=== PATIENT | male | born 1940 | race Two or more races ===

== ENCOUNTER 2020-04-18 05:19 | Emergency (ER) | payer MEDICARE ==
[2020-04-18 05:42] LABS: Glucose,Whole Blood 93 mg/dL (75-99)
[2020-04-18 06:47] LABS: Basophils # (A) 0.1 k/uL (0-0.2); Basophils % (A) 1 %; Eosinophils # (A) 0.4 k/uL (0-0.7); Eosinophils % (A) 5 %; HCT 46.1 % (39.0-53.0); HGB 15.5 gm/dL (13.0-17.5); Lymphocytes # (A) 1.7 k/uL (1.0-4.8); Lymphocytes % (A) 19 %; MCH 30.6 pg (25.0-35.0); MCHC 33.6 g/dL (31.0-37.0); Monocytes # (A) 0.5 k/uL (0-1.0); Monocytes % (A) 6 %; Neutrophils # (A) 5.9 k/uL (1.3-7.7); Neutrophils % (A) 68 %; Platelet Count 236 k/uL (150-450); RBC 5.07 m/uL (4.30-5.90); WBC 8.7 k/uL (3.8-10.6)
--- NOTE | 2020-04-18 06:59 | ED ---
General Adult HPI - General Chief complaint: Weakness Stated complaint: Weakness Time Seen by Provider: 04/18/20 05:34 Source: patient, family Mode of arrival: ambulatory Limitations: no limitations - History of Present Illness Initial comments: This patient is 79-year-old man who presents to be evaluated for generalized weakness, fatigue, tremulousness. He states that the symptoms started to affect him this morning when he got up to use the bathroom. Patient was concerned as he had spent a good portion of the previous day standing and pink for that he suspects had leg pain, it. He was wearing a mask at the time but states it did not have a very good Seal and he did inhale some dust. The patient told his daughter about symptoms and they bring him here for evaluation. The patient states that the symptoms have subsided and now he is feeling pretty good. Patient denies fever or chills. No dyspnea. No cough. No chest pain or any pain whatsoever. Patient is denying weakness now read no paresthesias. -: hour(s) Location: left, right, lower extremity Consistency: now resolved Improves with: none Worsens with: none Associated Symptoms: denies other symptoms - Related Data Home Medications Medication Instructions Recorded Confirmed Aspirin 325 mg PO DAILY 02/06/15 02/06/15 Cholecalciferol [Vitamin D3] 2,000 unit PO DAILY 02/06/15 02/06/15 Flecainide Acetate 50 mg PO BID 02/06/15 02/06/15 Fluticasone Propionate 1 each NASAL DAILY 02/06/15 02/06/15 Loratadine [Claritin] 10 mg PO DAILY 02/06/15 02/06/15 Timolol [Betimol 0.5% Ophth Soln] 1 drop LEFT EYE DAILY 02/06/15 02/06/15 Allergies Allergy/AdvReac Type Severity Reaction Status Date / Time No Known Allergies Allergy Verified 04/18/20 05:25 Review of Systems ROS Statement: Those systems with pertinent positive or pertinent negative responses have been documented in the HPI. ROS Other: All systems not noted in ROS Statement are negative. Constitutional: Reports: weakness (Generalized weakness, now Resolved). Denies: fever, chills Respiratory: Denies: cough, dyspnea Cardiovascular: Denies: chest pain, palpitations, syncope Endocrine: Reports: fatigue (Now resolved) Gastrointestinal: Denies: abdominal pain, nausea, vomiting Musculoskeletal: Denies: back pain Skin: Denies: rash Neurological: Denies: headache, weakness, numbness Past Medical History Additional Past Medical History / Comment(s): pacemaker History of Any Multi-Drug Resistant Organisms: None Reported Past Surgical History: Appendectomy, Hernia Repair, Pacemaker Additional Past Surgical History / Comment(s): cataracts Past Psychological History: No Psychological Hx Reported Smoking Status: Never smoker Past Alcohol Use History: None Reported Past Drug Use History: None Reported General Exam Limitations: no limitations General appearance: alert, in no apparent distress Head exam: Present: atraumatic, normocephalic Eye exam: Present: normal appearance, PERRL, EOMI. Absent: scleral icterus, conjunctival injection ENT exam: Present: normal oropharynx Neck exam: Present: normal inspection, full ROM Respiratory exam: Present: normal lung sounds bilaterally. Absent: respiratory distress, wheezes, rales, rhonchi, stridor Cardiovascular Exam: Present: regular rate, normal rhythm, normal heart sounds. Absent: systolic murmur, diastolic murmur, rubs, gallop GI/Abdominal exam: Present: soft. Absent: distended, tenderness, guarding, lorie ound, rigid Extremities exam: Present: normal inspection, normal capillary refill. Absent: pedal edema, calf tenderness Back exam: Present: normal inspection. Absent: CVA tenderness (R), CVA tenderness (L) Neurological exam: Present: alert, oriented X3, CN II-XII intact. Absent: motor sensory deficit Skin exam: Present: warm, dry, intact, normal color. Absent: rash Course Vital Signs 04/18/20 04/18/20 05:20 07:04 Temperature 98.5 F 98.2 F Pulse Rate 66 54 L Respiratory 20 19 Rate Blood Pressure 154/69 123/67 O2 Sat by Pulse 96 98 Oximetry Medical Decision Making - Lab Data Result diagrams: 04/18/20 06:10 04/18/20 06:10 Lab Results 04/18/20 04/18/20 04/18/20 Range/Units 05:40 06:10 06:10 WBC 8.7 (3.8-10.6) k/uL RBC 5.07 (4.30-5.90) m/uL Hgb 15.5 (13.0-17.5) gm/dL Hct 46.1 (39.0-53.0) % MCV 91.0 (80.0-100.0) fL MCH 30.6 (25.0-35.0) pg MCHC 33.6 (31.0-37.0) g/dL RDW 13.0 (11.5-15.5) % Plt Count 236 (150-450) k/uL Neutrophils % 68 % Lymphocytes % 19 % Monocytes % 6 % Eosinophils % 5 % Basophils % 1 % Neutrophils # 5.9 (1.3-7.7) k/uL Lymphocytes # 1.7 (1.0-4.8) k/uL Monocytes # 0.5 (0-1.0) k/uL Eosinophils # 0.4 (0-0.7) k/uL Basophils # 0.1 (0-0.2) k/uL Sodium 141 (137-145) mmol/L Potassium 4.1 (3.5-5.1) mmol/L Chloride 107 (98-107) mmol/L Carbon Dioxide 27 (22-30) mmol/L Anion Gap 7 mmol/L BUN 18 (9-20) mg/dL Creatinine 0.90 (0.66-1.25) mg/dL Est GFR (CKD-EPI)AfAm >90 (>60 ml/min/1.73 sqM) Est GFR (CKD-EPI)NonAf 81 (>60 ml/min/1.73 sqM) Glucose 91 (74-99) mg/dL POC Glucose (mg/dL) 93 (75-99) mg/dL POC Glu Test And Research Reactor Operator ID Mary Beaver Calcium 9.7 (8.4-10.2) mg/dL Total Bilirubin 2.1 H (0.2-1.3) mg/dL AST 23 (17-59) U/L ALT 13 (4-49) U/L Alkaline Phosphatase 61 (38-126) U/L Total Protein 6.6 (6.3-8.2) g/dL Albumin 4.0 (3.5-5.0) g/dL Disposition Clinical Impression: Fatigue Disposition: HOME SELF-CARE Condition: Good Instructions (If sedation given, give patient instructions): Fatigue (ED) Is patient prescribed a controlled substance at d/c from ED?: No Referrals: Ananth Hansen MD [Primary Care Provider] - 1-2 days
[2020-04-18 07:03] LABS: ALT 13 U/L (4-49); AST 23 U/L (17-59); African American GFR (CKD) >90 (>60 ml/min/1.73 sqM); Alkaline Phosphatase 61 U/L (38-126); Anion Gap 7 mmol/L; Blood Urea Nitrogen 18 mg/dL (9-20); Calcium 9.7 mg/dL (8.4-10.2); Carbon Dioxide 27 mmol/L (22-30); Chloride 107 mmol/L (98-107); Glucose 91 mg/dL (74-99); Non-African American GFR(CKD) 81 (>60 ml/min/1.73 sqM); Potassium 4.1 mmol/L (3.5-5.1); Sodium 141 mmol/L (137-145); Total Bilirubin 2.1 mg/dL (0.2-1.3); Total Protein 6.6 g/dL (6.3-8.2)
[2020-04-18 07:07] VITALS: BP 123/67; PULSE 54; RESP 19; TEMP 98.2
== END 2020-04-18 07:19 | disposition home or self-care (01) ==
LOC: EC 05:19
DX: R53.83 Other fatigue (principal); Z79.82 Long term (current) use of aspirin; Z95.0 Presence of cardiac pacemaker
CPT/HCPCS: 36415; 80053; 83655; 85025; 99285

== ENCOUNTER 2020-04-25 01:29 | Emergency (ER) | payer MEDICARE ==
[2020-04-25] MEDS ORDERED: SODIUM CHLORIDE 0.9% 1,000 ML IV STA (01:48)
--- NOTE | 2020-04-25 01:49 | ED ---
Weakness HPI - General Chief complaint: Weakness Stated complaint: Abdominal pain Time Seen by Provider: 04/25/20 01:47 Source: patient Mode of arrival: ambulatory Limitations: no limitations - History of Present Illness Initial comments: This is a 79-year-old male DF for evaluation significant weakness woke up and is sweating fit, not feeling well with nausea. Patient has weakness, uneasy belly and anxiety, secondary patient is woke up this week MD Complaint: generalized weakness -: hour(s) Location: generalized Severity: moderate Severity scale (1-10): 6 Consistency: constant Improves with: none Worsens with: none Context: recent illness Associated Symptoms: denies other symptoms - Related Data Home Medications Medication Instructions Recorded Confirmed Aspirin 325 mg PO DAILY 02/06/15 02/06/15 Cholecalciferol [Vitamin D3] 2,000 unit PO DAILY 02/06/15 02/06/15 Flecainide Acetate 50 mg PO BID 02/06/15 02/06/15 Fluticasone Propionate 1 each NASAL DAILY 02/06/15 02/06/15 Loratadine [Claritin] 10 mg PO DAILY 02/06/15 02/06/15 Timolol [Betimol 0.5% Ophth Soln] 1 drop LEFT EYE DAILY 02/06/15 02/06/15 Allergies Allergy/AdvReac Type Severity Reaction Status Date / Time No Known Allergies Allergy Verified 04/25/20 01:39 Review of Systems ROS Statement: Those systems with pertinent positive or pertinent negative responses have been documented in the HPI. ROS Other: All systems not noted in ROS Statement are negative. Past Medical History Additional Past Medical History / Comment(s): pacemaker History of Any Multi-Drug Resistant Organisms: None Reported Past Surgical History: Appendectomy, Hernia Repair, Pacemaker Additional Past Surgical History / Comment(s): cataracts Past Psychological History: No Psychological Hx Reported Smoking Status: Never smoker Past Alcohol Use History: None Reported Past Drug Use History: None Reported General Exam Limitations: no limitations General appearance: alert, in no apparent distress Head exam: Present: atraumatic, normocephalic, normal inspection Eye exam: Present: normal appearance, PERRL, EOMI. Absent: scleral icterus, conjunctival injection, periorbital swelling ENT exam: Present: normal exam, mucous membranes moist Neck exam: Present: normal inspection. Absent: tenderness, meningismus, lymphadenopathy Respiratory exam: Present: normal lung sounds bilaterally. Absent: respiratory distress, wheezes, rales, rhonchi, stridor Cardiovascular Exam: Present: regular rate, normal rhythm, normal heart sounds. Absent: systolic murmur, diastolic murmur, rubs, gallop, clicks GI/Abdominal exam: Present: soft, normal bowel sounds. Absent: distended, tenderness, guarding, rebound, rigid Extremities exam: Present: normal inspection, full ROM, normal capillary refill. Absent: tenderness, pedal edema, joint swelling, calf tenderness Back exam: Present: normal inspection Neurological exam: Present: alert, oriented X3, CN II-XII intact Psychiatric exam: Present: normal affect, normal mood Skin exam: Present: warm, dry, intact, normal color. Absent: rash Course Vital Signs 04/25/20 04/25/20 04/25/20 01:34 02:16 02:48 Temperature 98.1 F Pulse Rate 56 L 56 L 57 L Respiratory 17 16 14 Rate Blood Pressure 170/62 150/76 139/70 O2 Sat by Pulse 99 97 98 Oximetry - Reevaluation(s) Reevaluation #1: 04/25/20 01:48 Medical record is reviewed 04/25/20 01:49 Recent ER visit is also reviewed Reevaluation #2: 04/25/20 03:34 Patient is feeling better,shaking sweating or pain. Reevaluation #3: 04/25/20 03:34 Patient family informed of results and patient can be discharged home EKG Findings - EKG Comments: EKG Findings:: EKG is sinus bradycardia 54, MT 190 QRS 92 QTC 400 Medical Decision Making - Medical Decision Making 39 male with anxiety-type reaction some stomach uneasiness. Patient is negative for acute disease here in the ER, symptoms are normal vital signs are normal patient can be discharged home - Lab Data Result diagrams: 04/25/20 02:02 04/25/20 02:02 Lab Results 04/25/20 04/25/20 04/25/20 Range/Units 01:54 02:02 02:02 WBC 9.5 (3.8-10.6) k/uL RBC 5.16 (4.30-5.90) m/uL Hgb 15.5 (13.0-17.5) gm/dL Hct 47.0 (39.0-53.0) % MCV 91.1 (80.0-100.0) fL MCH 30.1 (25.0-35.0) pg MCHC 33.0 (31.0-37.0) g/dL RDW 13.1 (11.5-15.5) % Plt Count 223 (150-450) k/uL Neutrophils % 67 % Lymphocytes % 19 % Monocytes % 6 % Eosinophils % 5 % Basophils % 1 % Neutrophils # 6.4 (1.3-7.7) k/uL Lymphocytes # 1.8 (1.0-4.8) k/uL Monocytes # 0.6 (0-1.0) k/uL Eosinophils # 0.5 (0-0.7) k/uL Basophils # 0.1 (0-0.2) k/uL PT 10.5 (9.0-12.0) sec INR 1.0 (<1.2) APTT 22.9 (22.0-30.0) sec Sodium (137-145) mmol/L Potassium (3.5-5.1) mmol/L Chloride (98-107) mmol/L Carbon Dioxide (22-30) mmol/L Anion Gap mmol/L BUN (9-20) mg/dL Creatinine (0.66-1.25) mg/dL Est GFR (CKD-EPI)AfAm (>60 ml/min/1.73 sqM) Est GFR (CKD-EPI)NonAf (>60 ml/min/1.73 sqM) Glucose (74-99) mg/dL POC Glucose (mg/dL) 91 (75-99) mg/dL POC Glu Embedded Systems Software Engineer ID Kai, Jami Plasma Lactic Acid Shoaib (0.7-2.0) mmol/L Calcium (8.4-10.2) mg/dL Phosphorus (2.5-4.5) mg/dL Magnesium (1.6-2.3) mg/dL Total Bilirubin (0.2-1.3) mg/dL AST (17-59) U/L ALT (4-49) U/L Alkaline Phosphatase (38-126) U/L Creatine Kinase (55-170) U/L Troponin I (0.000-0.034) ng/mL NT-Pro-B Natriuret Pep pg/mL Total Protein (6.3-8.2) g/dL Albumin (3.5-5.0) g/dL TSH (0.465-4.680) mIU/L Urine Color Urine Appearance (Clear) Urine pH (5.0-8.0) Ur Specific [place] (1.001-1.035) Urine Protein (Negative) Urine Glucose (UA) (Negative) Urine Ketones (Negative) Urine Blood (Negative) Urine Nitrite (Negative) Urine Bilirubin (Negative) Urine Urobilinogen (<2.0) mg/dL Ur Leukocyte Esterase (Negative) 04/25/20 04/25/20 04/25/20 Range/Units 02:02 02:02 02:02 WBC (3.8-10.6) k/uL RBC (4.30-5.90) m/uL Hgb (13.0-17.5) gm/dL Hct (39.0-53.0) % MCV (80.0-100.0) fL MCH (25.0-35.0) pg MCHC (31.0-37.0) g/dL RDW (11.5-15.5) % Plt Count (150-450) k/uL Neutrophils % % Lymphocytes % % Monocytes % % Eosinophils % % Basophils % % Neutrophils # (1.3-7.7) k/uL Lymphocytes # (1.0-4.8) k/uL Monocytes # (0-1.0) k/uL Eosinophils # (0-0.7) k/uL Basophils # (0-0.2) k/uL PT (9.0-12.0) sec INR (<1.2) APTT (22.0-30.0) sec Sodium 139 (137-145) mmol/L Potassium 4.2 (3.5-5.1) mmol/L Chloride 107 (98-107) mmol/L Carbon Dioxide 28 (22-30) mmol/L Anion Gap 4 mmol/L BUN 18 (9-20) mg/dL Creatinine 0.98 (0.66-1.25) mg/dL Est GFR (CKD-EPI)AfAm 85 (>60 ml/min/1.73 sqM) Est GFR (CKD-EPI)NonAf 74 (>60 ml/min/1.73 sqM) Glucose 101 H (74-99) mg/dL POC Glucose (mg/dL) (75-99) mg/dL POC Glu Embedded Systems Software Engineer ID Plasma Lactic Acid Shoaib 0.9 (0.7-2.0) mmol/L Calcium 9.6 (8.4-10.2) mg/dL Phosphorus 2.5 (2.5-4.5) mg/dL Magnesium 2.0 (1.6-2.3) mg/dL Total Bilirubin 1.3 (0.2-1.3) mg/dL AST 19 (17-59) U/L ALT 12 (4-49) U/L Alkaline Phosphatase 63 (38-126) U/L Creatine Kinase 52 L (55-170) U/L Troponin I <0.012 (0.000-0.034) ng/mL NT-Pro-B Natriuret Pep pg/mL Total Protein 6.3 (6.3-8.2) g/dL Albumin 3.9 (3.5-5.0) g/dL TSH 4.220 (0.465-4.680) mIU/L Urine Color Urine Appearance (Clear) Urine pH (5.0-8.0) Ur Specific [place] (1.001-1.035) Urine Protein (Negative) Urine Glucose (UA) (Negative) Urine Ketones (Negative) Urine Blood (Negative) Urine Nitrite (Negative) Urine Bilirubin (Negative) Urine Urobilinogen (<2.0) mg/dL Ur Leukocyte Esterase (Negative) 04/25/20 04/25/20 Range/Units 02:02 02:58 WBC (3.8-10.6) k/uL RBC (4.30-5.90) m/uL Hgb (13.0-17.5) gm/dL Hct (39.0-53.0) % MCV (80.0-100.0) fL MCH (25.0-35.0) pg MCHC (31.0-37.0) g/dL RDW (11.5-15.5) % Plt Count (150-450) k/uL Neutrophils % % Lymphocytes % % Monocytes % % Eosinophils % % Basophils % % Neutrophils # (1.3-7.7) k/uL Lymphocytes # (1.0-4.8) k/uL Monocytes # (0-1.0) k/uL Eosinophils # (0-0.7) k/uL Basophils # (0-0.2) k/uL PT (9.0-12.0) sec INR (<1.2) APTT (22.0-30.0) sec Sodium (137-145) mmol/L Potassium (3.5-5.1) mmol/L Chloride (98-107) mmol/L Carbon Dioxide (22-30) mmol/L Anion Gap mmol/L BUN (9-20) mg/dL Creatinine (0.66-1.25) mg/dL Est GFR (CKD-EPI)AfAm (>60 ml/min/1.73 sqM) Est GFR (CKD-EPI)NonAf (>60 ml/min/1.73 sqM) Glucose (74-99) mg/dL POC Glucose (mg/dL) (75-99) mg/dL POC Glu Embedded Systems Software Engineer ID Plasma Lactic Acid Shoaib (0.7-2.0) mmol/L Calcium (8.4-10.2) mg/dL Phosphorus (2.5-4.5) mg/dL Magnesium (1.6-2.3) mg/dL Total Bilirubin (0.2-1.3) mg/dL AST (17-59) U/L ALT (4-49) U/L Alkaline Phosphatase (38-126) U/L Creatine Kinase (55-170) U/L Troponin I (0.000-0.034) ng/mL NT-Pro-B Natriuret Pep 324 pg/mL Total Protein (6.3-8.2) g/dL Albumin (3.5-5.0) g/dL TSH (0.465-4.680) mIU/L Urine Color Light Yellow Urine Appearance Clear (Clear) Urine pH 6.5 (5.0-8.0) Ur Specific [place] 1.012 (1.001-1.035) Urine Protein Negative (Negative) Urine Glucose (UA) Negative (Negative) Urine Ketones Negative (Negative) Urine Blood Negative (Negative) Urine Nitrite Negative (Negative) Urine Bilirubin Negative (Negative) Urine Urobilinogen <2.0 (<2.0) mg/dL Ur Leukocyte Esterase Negative (Negative) - Radiology Data Radiology results: report reviewed (Chest x-rays negative for acute disease), image reviewed Disposition Clinical Impression: Fatigue, Weakness, Anxiety Disposition: HOME SELF-CARE Condition: Good Instructions (If sedation given, give patient instructions): Weakness (ED) Is patient prescribed a controlled substance at d/c from ED?: No Referrals: Ananth Hansen MD [Primary Care Provider] - 1-2 days
[2020-04-25 01:55] LABS: Glucose,Whole Blood 91 mg/dL (75-99)
[2020-04-25 02:25] LABS: Basophils # (A) 0.1 k/uL (0-0.2); Basophils % (A) 1 %; Eosinophils # (A) 0.5 k/uL (0-0.7); Eosinophils % (A) 5 %; HGB 15.5 gm/dL (13.0-17.5); Lymphocytes # (A) 1.8 k/uL (1.0-4.8); Lymphocytes % (A) 19 %; MCH 30.1 pg (25.0-35.0); MCV 91.1 fL (80.0-100.0); Mean Platelet Volume 8.7; Monocytes # (A) 0.6 k/uL (0-1.0); Monocytes % (A) 6 %; Neutrophils # (A) 6.4 k/uL (1.3-7.7); Neutrophils % (A) 67 %; Platelet Count 223 k/uL (150-450); RBC 5.16 m/uL (4.30-5.90); RDW 13.1 % (11.5-15.5); WBC 9.5 k/uL (3.8-10.6)
--- NOTE | 2020-04-25 02:26 | XR ---
EXAMINATION TYPE: XR chest 2V DATE OF EXAM: 04/25/2020 COMPARISON: NONE HISTORY: Weakness TECHNIQUE: FINDINGS: There is no heart failure nor confluent pneumonic infiltrate. Costophrenic angles are clear . There is a right axillary pacemaker. Mediastinum is normal. There is no pleural effusion. IMPRESSION: No active cardiopulmonary disease. Normal heart.
[2020-04-25 02:34] LABS: Albumin 3.9 g/dL (3.5-5.0); Calcium 9.6 mg/dL (8.4-10.2); Partial Thromboplastin Time 22.9 sec (22.0-30.0); Phosphorus 2.5 mg/dL (2.5-4.5); Potassium 4.2 mmol/L (3.5-5.1); Prothrombin Time 10.5 sec (9.0-12.0); Total Bilirubin 1.3 mg/dL (0.2-1.3); Total Protein 6.3 g/dL (6.3-8.2)
[2020-04-25 03:06] LABS: Appearance,Urine Clear (Clear); Bilirubin,Urine Negative (Negative); Blood,Urine Negative (Negative); Color,Urine Light Yellow; Glucose,Urine (UA) Negative (Negative); Ketones,Urine Negative (Negative); Leukocyte Esterase,Urine Negative (Negative); Nitrite,Urine Negative (Negative); PH, Urine 6.5 (5.0-8.0); Protein,Urine Negative (Negative); Specific Gravity,Urine 1.012 (1.001-1.035); Urobilinogen,Urine <2.0 mg/dL (<2.0)
[2020-04-25 03:58] VITALS: BP 135/75; PULSE 53; RESP 17; TEMP 97.7
== END 2020-04-25 03:55 | disposition home or self-care (01) ==
LOC: EC 01:29
DX: R53.1 Weakness (principal); F41.9 Anxiety disorder, unspecified; R53.83 Other fatigue; Z95.0 Presence of cardiac pacemaker; Z98.42 Cataract extraction status, left eye; Z98.41 Cataract extraction status, right eye
CPT/HCPCS: 36415; 71046; 80053; 81003; 82550; 83605; 83735; 83880; 84100; 84443; 84484; 85025; 85610; 85730; 93005; 96360; 99285

== ENCOUNTER → 2020-08-04 | Outpatient (CLI) | payer MEDICARE ==
--- NOTE | 2020-08-04 11:53 | CT ---
EXAMINATION TYPE: CT abdomen pelvis w con DATE OF EXAM: 08/04/2020 COMPARISON: None. HISTORY: elevated PSA CT DLP: 518.4 mGycm, Automated Exposure Control for Dose Reduction was Utilized. CONTRAST: CT scan of the abdomen and pelvis is performed with oral and with IV Contrast, patient injected with 100 mL of Isovue 300. FINDINGS: LUNG BASES: Single lead pacemaker/defibrillator terminates in right ventricle. LIVER/GB: No significant abnormality is appreciated. PANCREAS: No significant abnormality is seen. SPLEEN: No significant abnormality is seen. ADRENALS: No significant abnormality is seen. KIDNEYS: Symmetric cortical medullary uptake and excretion without concerning renal mass or hydroneph rosis seen bilaterally. A few tiny subtle apparent parapelvic cysts lower pole of left kidney are not ed. Mild eccentric wall thickening anterior superior bladder presumed from outlet obstruction related to BPH. BOWEL: Oral contrast reaches level of rectum. No suspicious small or large bowel dilatation PROSTATE/SEMINAL VESICLES: Enlarged prostate gland consistent with BPH. LYMPH NODES: No greater than 1cm abdominal or pelvic lymph nodes are appreciated. OSSEOUS STRUCTURES: Grade 1 anterolisthesis L4 on L5. Moderate multilevel disc space narrowing L2-L3 through the L4-L5 levels. Levoconvex scoliosis centered at L3 level. Facet arthropathy lower lumbar s pine. OTHER: Small size fat-containing right inguinal hernia remains present despite coils from prior herni a repair surgery near pubic symphysis noted. Small fat-containing umbilical hernia. IMPRESSION: No suspicious mass or adenopathy to suggest metastatic disease.
--- NOTE | 2020-08-04 14:01 | NM ---
EXAMINATION TYPE: NM bone scan whole body DATE OF EXAM: 08/04/2020 COMPARISON: Same day CT abdomen and pelvis study. HISTORY: Prostate cancer. Delayed whole-body scanning was performed following the injection of 24.1 mCi Tc 99m MDP. Images acq uired 3 hours post injection. Images obtained in anterior and posterior projection of whole-body lisa g with additional spot images of the thorax and abdomen in several projections. FINDINGS: Slight underlying scoliotic curvature redemonstrated. No suspicious increased radiotracer uptake to s uggest metastatic disease to the bone. Mild increased uptake bilateral knees felt to reflect product of degenerative change greatest medial tibiofemoral compartment in both knees. CT correlation perform ed. IMPRESSION: As above.
== END | disposition home or self-care (01) ==
LOC: RADNMMAIN 08:35
PROVIDERS: ATTEND Urology
DX: C61 Malignant neoplasm of prostate (principal)
CPT/HCPCS: 82565; 84520; 74177; 36415; 78306; A9503; Q9967

== ENCOUNTER 2020-08-25 08:59 | Day surgery (SDC) | payer MEDICARE ==
[2020-08-21 11:02] VITALS: BMI 23.6
[~2020-08-25 08:59] MED LIST: LACTATED RINGERS 1,000 ML IV SCH; LIDOCAINE 1% (10MG/ML) FOR IV START INTRADERMA PRN; MIDAZOLAM 2 MG/2 ML VIAL IV PRN
[2020-08-25 09:39] VITALS: TEMP 98
[2020-08-25] MEDS ORDERED: LACTATED RINGERS 1,000 ML IV ONE ×2 (10:29→10:30)
--- NOTE | 2020-08-25 10:59 | P.PCN ---
Date of Procedure: 08/25/20 Description of Procedure: BRIEF HISTORY: Patient is a 79-year-old male presenting for outpatient colonoscopy for history of polyps. Patient reports last colonoscopy in 2013. He has had polyps removed in the past. Denies any change in bowel habits or blood per rectum. PROCEDURE PERFORMED: Colonoscopy with polypectomy. PREOPERATIVE DIAGNOSIS: History of colon polyps, last colonoscopy 2013. ESTIMATED BLOOD LOSS: Minimal. IV sedation per Anesthesia. PROCEDURE: After informed consent was obtained, the patient, was brought into the endoscopy unit. IV sedation was administered by Anesthesia under continuous monitoring. Digital rectal examination was normal. Initially the Olympus CF-190 flexible video colonoscope was then inserted in the rectum, gradually advanced into the cecum without any difficulty. Careful examination was performed as the scope was gradually being withdrawn. Ileocecal valve and the appendiceal orifice were visualized and appeared normal. Prep was excellent. Mucosa of the cecum, ascending colon, transverse colon, descending colon, sigmoid colon, and rectum appeared normal. Sessile 5 mm ascending colon polyp removed with cold snare polypectomy. 2 diminutive transverse colon polyps removed with cold forcep polypectomy measuring 1-2 mm in size. A few scattered sigmoid diverticula noted. Retroflexion was performed in the rectum and no lesions were seen, low- grade internal hemorrhoids. The patient tolerated the procedure well. IMPRESSION: Small ascending colon polyp removed with cold snare polypectomy. 2 diminutive transverse colon polyp removed with cold forcep polypectomy. Mild sigmoid diverticulosis. Internal Hemorrhoids. RECOMMENDATIONS: Findings of this examination were discussed with the patient and his family. Okay to resume diet. Okay to resume medications. Await pathology from polypectomy. Recommendation is for repeat colonoscopy in 5 years if the patient is medically stable at that time and interested in pursuing further screening.
[2020-08-25 11:01] VITALS: RESP 16
[2020-08-25 11:29] VITALS: BP 112/59; PULSE 55
== END 2020-08-25 11:50 | disposition home or self-care (01) ==
LOC: ORWHC2ENDO 08:59
PROVIDERS: ATTEND Internal Medicine
DX: Z12.11 Encounter for screening for malignant neoplasm of colon (principal); D12.2 Benign neoplasm of ascending colon; D12.3 Benign neoplasm of transverse colon; K57.30 Diverticulosis of large intestine without perforation or abscess without bleeding; K64.8 Other hemorrhoids; Z86.010 Personal history of colon polyps; I48.91 Unspecified atrial fibrillation; C61 Malignant neoplasm of prostate; F41.9 Anxiety disorder, unspecified; K21.9 Gastro-esophageal reflux disease without esophagitis; Z95.0 Presence of cardiac pacemaker; Z79.82 Long term (current) use of aspirin; Z79.899 Other long term (current) drug therapy; Z90.49 Acquired absence of other specified parts of digestive tract; Z98.41 Cataract extraction status, right eye; Z98.42 Cataract extraction status, left eye; Z98.890 Other specified postprocedural states
CPT/HCPCS: 45380; 45385; 88305

== ENCOUNTER → 2020-09-10 | Outpatient (CLI) | payer MEDICARE ==
[2020-09-10 11:07] LABS: Basophils % (A) 1 %; Eosinophils # (A) 0.2 k/uL (0-0.7); Eosinophils % (A) 3 %; HCT 45.4 % (39.0-53.0); HGB 15.1 gm/dL (13.0-17.5); Lymphocytes # (A) 1.4 k/uL (1.0-4.8); Lymphocytes % (A) 20 %; MCH 30.2 pg (25.0-35.0); MCHC 33.3 g/dL (31.0-37.0); MCV 90.8 fL (80.0-100.0); Mean Platelet Volume 7.9; Monocytes # (A) 0.4 k/uL (0-1.0); Monocytes % (A) 6 %; Neutrophils % (A) 69 %; Platelet Count 238 k/uL (150-450); RBC 4.99 m/uL (4.30-5.90); RDW 12.6 % (11.5-15.5); WBC 7.2 k/uL (3.8-10.6)
[2020-09-10 11:19] LABS: Calcium 10.4 mg/dL (8.4-10.2); Potassium 4.5 mmol/L (3.5-5.1)
== END | disposition home or self-care (01) ==
LOC: LABWHC1 10:17
PROVIDERS: ATTEND Urology
DX: Z01.818 Encounter for other preprocedural examination (principal); C61 Malignant neoplasm of prostate
CPT/HCPCS: 36415; 80048; 85025

== ENCOUNTER → 2020-09-22 | Outpatient (CLI) | payer MEDICARE ==
--- NOTE | 2020-09-22 15:34 | ECHOF ---
Referral Reason:Dyspnea R06.09 MEASUREMENTS -------- HEIGHT: 172.7 cm WEIGHT: 70.3 kg BP: IVSd: 1.4 cm (0.6 - 1.1) LVIDd: 3.9 cm (3.9 - 5.3) LVPWd: 1.2 cm (0.6 - 1.1) IVSs: 1.6 cm LVIDs: 2.1 cm LVPWs: 1.9 cm RVIDd: 4.1 cm (< 3.3) LAESV Index (A-L): 32.64 ml/m Ao Diam: 3.3 cm (2.0 - 3.7) LA Diam: 4.5 cm (2.7 - 3.8) AV Cusp: 2.0 cm (1.5 - 2.6) EPSS: 0.2 cm MV E Natanael: 0.77 m/s MV DecT: 132 ms MV A Natanael: 0.67 m/s MV E/A Ratio: 1.14 AR PHT: 845 ms RAP: 5.00 mmHg RVSP: 37.62 mmHg MV EF SLOPE: 92.78 mm/s (70 - 150) MV EXCURSION: 13.88 mm (> 18.000) FINDINGS -------- This was a technically adequate study. The left ventricular size is normal. There is mild concentric left ventricular hypertrophy. Overa ll left ventricular systolic function is normal with, an EF between 55 - 60 %. The diastolic fillin g pattern is normal for the age of the patient 11.16. The right ventricle is moderately enlarged. LA is midly dilated 29-33ml/m2. The right atrium is mildly enlarged. Electronic pacemaker lead seen in the right atrial cavity. Interatrial and interventricular septum intact. The aortic valve is trileaflet and appears structurally normal. Trace amount of aortic regurgitatio n. There is no evidence of aortic stenosis. Mild mitral regurgitation is present. Mild tricuspid regurgitation present. There is mild pulmonary hypertension. The right ventricular systolic pressure, as measured by Doppler, is 37.62mmHg. Trace/mild (physiologic) pulmonic regurgitation. The aortic root size is normal. Normal inferior vena cava with normal inspiratory collapse consistent with estimated right atrial pre ssure of 5 mmHg. There is no pericardial effusion. CONCLUSIONS -------- 1. The left ventricular size is normal. 2. There is mild concentric left ventricular hypertrophy. 3. Overall left ventricular systolic function is normal with, an EF between 55 - 60 %. 4. The diastolic filling pattern is normal for the age of the patient 11.16 5. The right ventricle is moderately enlarged. 6. LA is midly dilated 29-33ml/m2. 7. The right atrium is mildly enlarged. 8. Electronic pacemaker lead seen in the right atrial cavity. 9. Trace amount of aortic regurgitation. 10. Mild mitral regurgitation is present. 11. Mild tricuspid regurgitation present. 12. There is mild pulmonary hypertension. 13. The right ventricular systolic pressure, as measured by Doppler, is 37.62mmHg. 14. Trace/mild (physiologic) pulmonic regurgitation. SALES REPRESENTATIVE [employer]: Fela Caruso RDCS
== END | disposition home or self-care (01) ==
LOC: CPPFTMAIN 11:54
PROVIDERS: ATTEND Family Medicine
DX: R94.2 Abnormal results of pulmonary function studies (principal); R06.09 Other forms of dyspnea
CPT/HCPCS: 93306; 94060; 94726; 94729

== ENCOUNTER → 2020-10-12 | Outpatient (CLI) | payer MEDICARE ==
[2020-10-12 12:28] LABS: Basophils # (A) 0.1 k/uL (0-0.2); Basophils % (A) 1 %; Eosinophils # (A) 0.6 k/uL (0-0.7); Eosinophils % (A) 6 %; HCT 47.5 % (39.0-53.0); HGB 16.2 gm/dL (13.0-17.5); Lymphocytes % (A) 20 %; MCH 30.9 pg (25.0-35.0); MCHC 34.1 g/dL (31.0-37.0); MCV 90.4 fL (80.0-100.0); Mean Platelet Volume 8.2; Monocytes # (A) 0.7 k/uL (0-1.0); Monocytes % (A) 7 %; Neutrophils # (A) 6.6 k/uL (1.3-7.7); Neutrophils % (A) 65 %; Platelet Count 282 k/uL (150-450); RBC 5.25 m/uL (4.30-5.90); RDW 12.5 % (11.5-15.5); WBC 10.1 k/uL (3.8-10.6)
[2020-10-12 12:47] LABS: Calcium 10.4 mg/dL (8.4-10.2); Potassium 4.8 mmol/L (3.5-5.1)
[2020-10-12 12:55] LABS: Appearance,Urine Clear (Clear); Bilirubin,Urine Negative (Negative); Blood,Urine Trace (Negative); Color,Urine Light Yellow; Glucose,Urine (UA) Negative (Negative); Ketones,Urine Negative (Negative); Leukocyte Esterase,Urine Negative (Negative); Mucus,Urine Rare /hpf; Nitrite,Urine Negative (Negative); Protein,Urine Negative (Negative); RBC,Urine 1 /hpf (0-5); Specific Gravity,Urine 1.012 (1.001-1.035); Urobilinogen,Urine <2.0 mg/dL (<2.0); WBC,Urine 1 /hpf (0-5)
== END | disposition home or self-care (01) ==
LOC: LABPAT 11:15
PROVIDERS: ATTEND Urology
DX: Z01.818 Encounter for other preprocedural examination (principal); N40.1 Benign prostatic hyperplasia with lower urinary tract symptoms; R35.0 Frequency of micturition
CPT/HCPCS: 36415; 80048; 81001; 85025; 87086

== ENCOUNTER → 2021-02-10 | Outpatient (CLI) | payer MEDICARE | END | disposition home or self-care (01) | LOC: LABWHC1 14:09 | PROVIDERS: ATTEND Radiology Radiation Oncology | DX: C61 Malignant neoplasm of prostate (principal); Z85.828 Personal history of other malignant neoplasm of skin | CPT/HCPCS: 36415; 84153 ==

== ENCOUNTER 2021-03-18 09:58 | Day surgery (SDC) | payer MEDICARE ==
--- NOTE | 2021-03-15 09:31 | P.HPIHPCON ---
History of Present Illness H&P Date: 03/15/21 Chief Complaint: Prostate cancer This is an 80-year-old male with history of [place] 8 prostate cancer. He elected to proceed with EBRT/ADT. Of note he has hx of BPH, He underwent TURP on , prior to starting his radiation therapy. His prostate measured 35 grams at time of TRUS. Option of SpaceOR placement was discussed with him. Discussed with him the purpose of this is to reduce rectal toxicity from radiation. Discussed with him the risk which includes but not limited to bleeding, infection, rectal perforation. Discussed with him that he might still develop radiation proctitis even with SpaceOR placement. He understood all the risk and agreed to proceed Consent for Procedure: I have explained the operation/procedure to the patient, including the risks, benefits, side effects, alternative therapies (including not receiving the p roposed treatment or service), the likelihood of the patient achieving his/her goals, and potential recuperation problems for the procedure/sedation/analgesia, as well as any blood products, if indicated. I also explained to the patient the risks, benefits and side effects of the alternatives, as well as the risks related to not receiving the proposed procedure, care, treatment, or services. Past Medical History Additional Past Medical History / Comment(s): pacemaker History of Any Multi-Drug Resistant Organisms: None Reported Past Surgical History: Appendectomy, Hernia Repair, Pacemaker Additional Past Surgical History / Comment(s): cataracts Smoking Status: Never smoker Medications and Allergies Home Medications Medication Instructions Recorded Confirmed Type Aspirin 325 mg PO DAILY 02/06/15 10/13/20 History Cholecalciferol [Vitamin D3] 50 mcg PO DAILY 02/06/15 10/13/20 History Flecainide Acetate 50 mg PO BID 02/06/15 10/13/20 History Timolol [Betimol 0.5% Ophth Soln] 1 drop LEFT EYE DAILY 02/06/15 10/13/20 History Calcium Carbonate/Vitamin D3 2 each PO DAILY 10/13/20 10/13/20 History [Calcium 600 mg-Vit D3 5 mcg (200 unit)] Leuprolide Acetate [Eligard] 45 mg SQ Q180D 10/13/20 10/13/20 History Allergies Allergy/AdvReac Type Severity Reaction Status Date / Time No Known Allergies Allergy Verified 10/13/20 11:14 Surgical - Exam - General well developed, well nourished, no distress - Eyes PERRL, normal ocular movement - ENT normal nares, normal mucosa - Respiratory normal expansion, normal respiratory effort - Abdomen Abdomen: soft, non tender Assessment and Plan Assessment: 80-year-old male with history of Aishwarya 8 prostate cancer -OR for SpaceOR placement
[~2021-03-18 09:58] MED LIST changes: +DEXAMETHASONE SOD PHOSPHATE 4 MG/ML 1 ML VIAL IV ONE; +HYDROmorphone 0.5 MG/0.5 ML SYRINGE IVP PRN; -LIDOCAINE 1% (10MG/ML) FOR IV START INTRADERMA PRN; -MIDAZOLAM 2 MG/2 ML VIAL IV PRN; +ONDANSETRON 4 MG/2 ML VIAL IVP ONE
[2021-03-18 10:37] VITALS: RESP 16; TEMP 98.2
[2021-03-18 11:03] LABS: HCT 43.7 % (39.0-53.0); MCH 31.9 pg (25.0-35.0); MCHC 34.3 g/dL (31.0-37.0); MCV 93.1 fL (80.0-100.0); Mean Platelet Volume 8.8; Platelet Count 227 k/uL (150-450); RDW 13.2 % (11.5-15.5); WBC 8.1 k/uL (3.8-10.6)
[2021-03-18 11:19] LABS: African American GFR (CKD) >90 (>60 ml/min/1.73 sqM); Anion Gap 8 mmol/L; Blood Urea Nitrogen 24 mg/dL (9-20); Calcium 10.4 mg/dL (8.4-10.2); Carbon Dioxide 21 mmol/L (22-30); Chloride 110 mmol/L (98-107); Glucose 94 mg/dL (74-99); Non-African American GFR(CKD) 82 (>60 ml/min/1.73 sqM); Sodium 139 mmol/L (137-145)
[2021-03-18 11:23] LABS: Potassium 4.9 mmol/L (3.5-5.1)
[2021-03-18] MEDS ORDERED: KETAMINE 10 MG/ML 20 ML VIAL ONE (11:56)
[2021-03-18] MEDS ORDERED: MIDAZOLAM 2 MG/2 ML VIAL ONE (11:56)
[2021-03-18] MEDS ORDERED: fentaNYL (PF) 50 MCG/ML 2 ML AMP ONE (11:56)
[2021-03-18] MEDS ORDERED: LIDOCAINE 2% INJ 20 MG/ML SQ ONE (11:56)
--- NOTE | 2021-03-18 12:35 | P.OP ---
Date of Procedure: 03/18/21 Preoperative Diagnosis: Adenocarcinoma of the Prostate Postoperative Diagnosis: Same Procedure(s) Performed: SpaceOAR Implant Anesthesia: MAC Surgeon: Tad Treadwell Estimated Blood Loss (ml): 10 IV fluids (ml): 300 Pathology: none sent Condition: stable Disposition: PACU Indications for Procedure: This is an 80-year-old male with history of Aishwarya 8 prostate cancer. He elected to proceed with EBRT/ADT. Of note he has hx of BPH, He underwent TURP on , prior to starting his radiation therapy. His prostate measured 35 grams at time of TRUS. Option of SpaceOR placement was discussed with him. Discussed with him the purpose of this is to reduce rectal toxicity from radiation. Discussed with him the risk which includes but not limited to bleeding, infection, rectal perforation. Discussed with him that he might still develop radiation proctitis even with SpaceOR placement. He understood all the risk and agreed to proceed Operative Findings: 1 cm separation between the prostate and rectum. Description of Procedure: The patient was taken to the operating room and placed in the dorsolithotomy position, with his legs supported in Jorge stirrups. The external genitalia was prepped and draped sterilely. The Bruel and Kjaer transrectal ultrasound probe was placed intrarectally. The prostate was imaged. The probe was then placed within the stabilizing stand. A spinal needle was advanced under ultrasonic guidance to the level of the urogenital diaphragm, and lidocaine was used to infiltrate the tissues as the needle was withdrawn. Next, the SpaceOAR needle was passed through the midline of the perineum, 1-2 cm anterior to the anal opening. The needle was slowly advanced under ultrasonic guidance until the needle tip was located within the fat plane between the prostate and rectum, at the level of the mid prostate gland. The needle was confirmed to be midline on the axial imaging. A small amount of normal saline was injected for hydrodissection. Next, the SpaceOAR components were mixed and loaded into the Y connector per protocol. The Y connector was then connected to the needle, and the components were injected slowly over a course of approximately 12 seconds. A total of 10 ml was injected. 1 cm distance was created between the prostate and rectum, as desired. It should be noted that at no point was there any concern of rectal perforation. The needle was withdrawn, as well as the transrectal ultrasound probe, and the procedure was terminated. The patient tolerated the procedure well and was taken to the recovery room in stable condition.
[2021-03-18 13:14] VITALS: BP 125/70; PULSE 555
== END 2021-03-18 13:40 | disposition home or self-care (01) ==
LOC: OR 09:58
PROVIDERS: ATTEND Urology
DX: C61 Malignant neoplasm of prostate (principal); T75.3XXA Motion sickness, initial encounter; Z95.0 Presence of cardiac pacemaker
CPT/HCPCS: 55874; 80048; 85027; C1889; J2001; J2250; J1100; J0690; J2405; J3010

== ENCOUNTER 2023-01-06 20:56 | Observation (INO) | payer MEDICARE ==
--- NOTE | 2023-01-06 21:30 | ED ---
Chest Pain HPI - General Chief Complaint: Chest Pain Stated Complaint: Chest Pain Time Seen by Provider: 01/06/23 21:07 Source: patient, EMS Mode of arrival: EMS Limitations: no limitations - History of Present Illness Initial Comments: 's patient is an 82-year-old man who arrives here as transfer from the [facility] urgent care. The patient had gone there with complaint of chest pain, substernal, that had developed around 4 PM while he was using his riding lawnmower. The patient was seen in the department, had chest x-ray which reportedly showed an old rib fracture, had an EKG that was reportedly unremarkable, had lab testing, also reportedly unremarkable and transferred here to have further cardiac evaluation. When I interview the patient, he states there is a little chest discomfort. He is not having nausea, vomiting, dyspnea. The patient has seen Dr. Juanito HERMOSILLO Complaint: chest pain Onset/Timin -: hour(s) Onset: other Pain Location: substernal Pain Radiation: none Severity: moderate Quality: heaviness Consistency: constant Improves With: nothing Worsens With: nothing Treatments Prior to Arrival: aspirin, nitroglycerin, oxygen - Related Data Home Medications Medication Instructions Recorded Confirmed Flecainide Acetate 50 mg PO BID 02/06/15 01/06/23 Calcium Carbonate/Vitamin D3 1 cap PO BID 03/16/21 01/06/23 [Calcium 600-Vit D3 12.5 Mcg (500 Iu)] Cholecalciferol [Vitamin D3 (25 50 mcg PO BID 03/16/21 01/06/23 Mcg = 1000 Iu)] Fluticasone Nasal [place] [Flonase 2 spray NASAL HS 03/16/21 01/06/23 Nasal [place]] Apixaban [Eliquis] 5 mg PO BID 01/06/23 01/06/23 FLUoxetine HCL [PROzac] 10 mg PO DAILY 01/06/23 01/06/23 Latanoprost [Latanoprost 0.005%] 1 drop LEFT EYE HS 01/06/23 01/06/23 Rosuvastatin [Crestor] 20 mg PO DAILY 01/06/23 01/06/23 Ubidecarenone [Coenzyme Q10] 200 mg PO DAILY 01/06/23 01/06/23 timoloL maleate [timoloL maleate 1 applic LEFT EYE DAILY 01/06/23 01/06/23 0.25%] Allergies Allergy/AdvReac Type Severity Reaction Status Date / Time No Known Allergies Allergy Verified 01/06/23 21:02 Review of Systems ROS Statement: Those systems with pertinent positive or pertinent negative responses have been documented in the HPI. ROS Other: All systems not noted in ROS Statement are negative. Constitutional: Denies: fever, chills, weakness Respiratory: Denies: cough, dyspnea Cardiovascular: Reports: chest pain. Denies: palpitations, dyspnea on exertion, orthopnea, edema, syncope Gastrointestinal: Denies: abdominal pain, nausea, vomiting Genitourinary: Denies: dysuria, hematuria Musculoskeletal: Denies: back pain Skin: Denies: rash Neurological: Denies: headache, weakness Psychiatric: Denies: anxiety EKG Findings - EKG Results: EKG: interpreted by BRYANNA, sinus rhythm, normal axis, normal QRS, normal ST/T EKG shows: bradycardia (Rate 56 bpm) Past Medical History Past Medical History: Cancer Additional Past Medical History / Comment(s): Pacemaker. PROSTATE CA DIAGNOSED IN 2020. HAD COVID IN OCTOBER 2020. NO VACCINE. MELANOMA. History of Any Multi-Drug Resistant Organisms: None Reported Past Surgical History: Appendectomy, Hernia Repair, Pacemaker Additional Past Surgical History / Comment(s): BILATERAL CATARACTS, IMPLANT IN LEFT EYE. MELANOMA IN CHEST AREA. Past Anesthesia/Blood Transfusion Reactions: No Reported Reaction, Motion Sickness Type of Cardiac Device: Permanent Pacemaker Device Placement Date:: EST IN THE 1978. OCT 03, 2013. JUAN PABLO, [id number] (ON DEMAND). Past Psychological History: No Psychological Hx Reported Smoking Status: Never smoker Past Alcohol Use History: None Reported Past Drug Use History: None Reported - Past Family History Daughter(s) Family Medical History: Cancer Sister(s) Family Medical History: Cancer Mother Sister(s) Family Medical History: Cancer Additional Family Medical History / Comment(s): BREAST CANCER General Exam Limitations: no limitations General appearance: alert, in no apparent distress Head exam: Present: atraumatic, normocephalic Eye exam: Present: normal appearance. Absent: scleral icterus, conjunctival injection ENT exam: Present: normal oropharynx Neck exam: Present: normal inspection Respiratory exam: Present: normal lung sounds bilaterally. Absent: respiratory distress, wheezes, rales, rhonchi, stridor Cardiovascular Exam: Present: regular rate, normal rhythm, normal heart sounds. Absent: systolic murmur, diastolic murmur, rubs, gallop GI/Abdominal exam: Present: soft. Absent: distended, tenderness, guarding, rebound, rigid, mass Extremities exam: Present: normal inspection, normal capillary refill. Absent: pedal edema, calf tenderness Back exam: Present: normal inspection. Absent: CVA tenderness (R), CVA tenderness (L) Neurological exam: Present: alert Skin exam: Present: warm, dry, intact, normal color. Absent: rash Course Vital Signs 01/06/23 20:59 Temperature 99.1 F Pulse Rate 57 L Respiratory 16 Rate Blood Pressure 154/65 O2 Sat by Pulse 96 Oximetry Chest Pain MDM - MDM The patient had chest x-ray which I interpreted as being negative for acute infiltrate, congestive heart failure, and pneumothorax. Disposition
--- NOTE | 2023-01-06 21:40 | XR ---
EXAMINATION TYPE: XR chest 2V DATE OF EXAM: 01/06/2023 9:33 PM COMPARISON: Chest radiographs from 04/25/2020 TECHNIQUE: XR chest 2V . CLINICAL INDICATION:Male, 82 years old with history of Chest Pain; FINDINGS: Lungs/Pleura: There is no evidence of pleural effusion, focal consolidation, or pneumothorax. Left l ower lung linear scarring and/or atelectasis. Pulmonary vascularity: Unremarkable. Heart/mediastinum: Cardiomediastinal silhouette is unremarkable. Atherosclerotic calcifications are seen in the aorta. Single-lead cardiac conduction device overlying the right hemithorax with lead pro jecting over the right ventricle. Musculoskeletal: Multiple level degenerative disc disease changes seen throughout the spine. IMPRESSION: Left lower lung linear scarring and/or atelectasis. Otherwise no acute process.
[2023-01-06] MEDS ORDERED: NITROGLYCERIN SL TABS 0.4 MG TAB SUBLINGUAL PRN (23:01)
[2023-01-06] MEDS ORDERED: MORPHINE SULFATE 4 MG/ML SYRINGE IV STA (23:07)
[2023-01-06] MEDS ORDERED: IBUPROFEN 600 MG TAB PO STA (23:07)
[2023-01-07] MEDS ORDERED: LORazepam 2 MG/ML INJ IV STA (00:10)
[2023-01-07] MEDS ORDERED: MORPHINE SULFATE 4 MG/ML SYRINGE IVP PRN (00:57)
--- NOTE | 2023-01-07 03:51 | P.HPIM ---
History of Present Illness H&P Date: 01/07/23 Chief Complaint: chest pain 82 year old male with possible history of afib s/p pacemaker on eliquis patient was doing yard work , mowing lawn using a ride on mower, when toward the end of his session, he noticed chest pain, worse with breathing , no associated nausea, vomiting, dizziness, palpitations, or SOB. however, he could not take deep breaths as pain would get worse. pain was not radiating , however, mainly central sharp pain and pressure 10/10 in severity he went inside , and rested for about an hour, did not take anything for it, and eventually decided to go to the hospital for evaluation , then he was transferred to our facility for suspected [place], for cardiology eval his trops were negative , and EKG showed T wave inversion in lead III CXR showed LLL atelactesis , with old 8th rib fracture patient does recall a recent URI symptoms with chronic runny nose he takes eliquis and flecainide and is not sure why , he denies any history of heart attack or CHF Review of Systems Pertinent positives as noted in HPI. All other systems were reviewed and are negative Past Medical History Past Medical History: Cancer Additional Past Medical History / Comment(s): Pacemaker. PROSTATE CA DIAGNOSED IN 2020. HAD COVID IN OCTOBER 2020. NO VACCINE. MELANOMA. History of Any Multi-Drug Resistant Organisms: None Reported Past Surgical History: Appendectomy, Hernia Repair, Pacemaker Additional Past Surgical History / Comment(s): BILATERAL CATARACTS, IMPLANT IN LEFT EYE. MELANOMA IN CHEST AREA. Past Anesthesia/Blood Transfusion Reactions: No Reported Reaction, Motion Sickness Type of Cardiac Device: Permanent Pacemaker Device Placement Date:: EST IN THE 1978. OCT 03, 2013ST. ALMEIDA, [id number] (ON DEMAND). Past Psychological History: No Psychological Hx Reported Smoking Status: Never smoker Past Alcohol Use History: None Reported Past Drug Use History: None Reported - Past Family History Daughter(s) Family Medical History: Cancer Sister(s) Family Medical History: Cancer Mother Sister(s) Family Medical History: Cancer Additional Family Medical History / Comment(s): BREAST CANCER Medications and Allergies Home Medications Medication Instructions Recorded Confirmed Type Flecainide Acetate 50 mg PO BID 02/06/15 01/06/23 History Calcium Carbonate/Vitamin D3 1 cap PO BID 03/16/21 01/06/23 History [Calcium 600-Vit D3 12.5 Mcg (500 Iu)] Cholecalciferol [Vitamin D3 (25 50 mcg PO BID 03/16/21 01/06/23 History Mcg = 1000 Iu)] Fluticasone Nasal [place] [Flonase 2 spray NASAL HS 03/16/21 01/06/23 History Nasal [place]] Apixaban [Eliquis] 5 mg PO BID 01/06/23 01/06/23 History FLUoxetine HCL [PROzac] 10 mg PO DAILY 01/06/23 01/06/23 History Latanoprost [Latanoprost 0.005%] 1 drop LEFT EYE HS 01/06/23 01/06/23 History Rosuvastatin [Crestor] 20 mg PO DAILY 01/06/23 01/06/23 History Ubidecarenone [Coenzyme Q10] 200 mg PO DAILY 01/06/23 01/06/23 History timoloL maleate [timoloL maleate 1 applic LEFT EYE DAILY 01/06/23 01/06/23 History 0.25%] Allergies Allergy/AdvReac Type Severity Reaction Status Date / Time No Known Allergies Allergy Verified 01/06/23 21:02 Physical Exam Vitals: Vital Signs Temp Pulse Resp BP Pulse Ox 01/06/23 20:59 99.1 F 57 L 16 154/65 96 Intake and Output 01/06/23 01/06/23 01/07/23 14:59 22:59 06:59 Other: Weight 72.575 kg Constitutional: No acute distress, conversant, pleasant Eyes: Anicteric sclerae, moist conjunctiva, Pupils equal round reactive to light ENMT: NC/AT Oropharynx clear, no erythema, or exudates Neck: Supple, no masses, or JVD No carotid bruits No thyromegaly Lungs: Clear to auscultation Clear to percussion Normal respiratory effort, no accessory muscle use Cardiovascular: Heart regular in rate and rhythm, No murmurs, gallops, or rubs No peripheral edema Abdominal: Soft Nontender, no guarding, rebound or rigidity Abdomen moving with respiration Normoactive bowel sounds No hepatomegaly, No splenomegaly No palpable mass No abdominal wall hernia noted Skin: Normal temperature, tone, texture, turgor No induration No subcutaneous nodules No rash, lesions No ulcers Extremities: No digital cyanosis No clubbing Pedal pulses intact and symmetrical Radial pulses intact and symmetrical No calf tenderness Psychiatric: Alert and oriented to person, place and time Appropriate affect Neuro Muscles Strength 5/5 in all 4 extremities Sensation to light touch grossly present throughout Cranial nerves II-XII grossly intact Lymphatics: no palpable cervical or supraclavicular lymph nodes Assessment and Plan Assessment: 82 year old male with ? afib s/p pacemaker on eliquis , presented due to chest pain , I discussed the case with ED doc, and I accepted the admission for cardiac workup to rule out ACS with anticipated length of stay < 2 midnights chest pain rule out ACS aspirin , statin surveillance monitor monitor nae signs trops negative X 3 EKG showed t wave inversion lead III nitro pRN for pain morphine PRN for pain cardiology consult check echo tsh and lipid panel in AM chronic condition possible afib s/p pacemaker , on eliquis continue flecainide full code DVT PPX on eliquis
[2023-01-07] MEDS ORDERED: NON FORMULARY DRUG (Ubidecarenone [Coenzyme Q10] 200 MG Capsule) PO SCH (09:00)
[2023-01-07] MEDS ORDERED: ASPIRIN 325 MG TAB PO SCH (09:00)
[2023-01-07] MEDS: ATORVASTATIN 40 MG TAB PO SCH (09:29)
[2023-01-07] MEDS: APIXABAN 5 MG TAB PO SCH ×2 (09:29→20:22)
[2023-01-07] MEDS: FLECAINIDE 50 MG TAB PO SCH ×2 (09:30→20:22)
[2023-01-07] MEDS: TIMOLOL 0.25% OPHTH DROPS 5 ML BTL LEFT EYE SCH (10:13)
[2023-01-07] MEDS: FLUoxetine HCL 10 MG CAP PO SCH (10:13)
--- NOTE | 2023-01-07 12:58 | P.PN ---
Subjective Progress Note Date: 01/07/23 Hospital course: Patient is a very pleasant 82-year-old male with a past medical history of atrial fibrillation on Flecainide and Eliquis, pacemaker placement, hyperlipidemia, pulmonary hypertension, glaucoma, and prostate cancer. He presented to the emergency department with a chief complaint of chest pain. Patient reports while doing some yard work he experienced pain to his midsternal chest. Patient reports his pain took his breath away and is now described as a constant soreness. Patient denies any radiation of this pain states remains in his midsternal chest and continues to described as constant soreness. He denies having any headache, lightheadedness, dizziness, palpitations, nausea, vomiting, diaphoresis, or experiencing any numbness/tingling/weakness/swelling in his extremities. Patient does report that he is not sure if he is just not able to take a deep breath or if his pain seems to worsen if he tries to take a deep breath. Patient immediately went to [facility] for evaluation and was transferred to our facility for a cardiac workup. Patient was admitted under our services with consultation to cardiology. Troponins were trended all negative at less than 0.0123 draws. TSH 1.070. EKG completed revealing an atrial paced rhythm at 56 bpm with T-wave inversion in lead III, T-wave inversion in lead III is unchanged when compared to previous EKG completed 04/25/20 upon personal review/comparison and interpretation. Chest x-ray c ompleted in radiology report reviewed showing a left lower lung linear scarring and/or atelectasis otherwise negative for acute cardiopulmonary process. Physical exam: Vital signs reviewed and stable. General: Nontoxic, no distress and appears stated age. Derm: Skin warm and dry, normal coloration for ethnicity. Head: Atraumatic, normocephalic and symmetric. Eyes: EOMs intact, no lid lag, and anicteric sclera Mouth: no lip lesions, mucus membranes moist Cardiovascular: regular rate and rhythm with normal S1S2, no murmur, positive posterior tibial pulses bilaterally, and cap refill < 2 seconds. Pacemaker left anterior chest. Lungs: Respirations even, regular, and unlabored on room air. Lungs CTA bilaterally, no rhonchi, no rales, no wheezing, and no accessory muscle usage. Abdominal: soft, nontender to palpation, no guarding, no appreciable organomegaly Ext: ROM intact. No gross muscle atrophy, no edema, no contractures Neuro: Speech clear, face symmetrical and CN II-XII grossly intact with no noted focal neuro deficits Psych: Alert and oriented to person, place, time, and situation. Appropriate and pleasant affect. Assessment and Plan of Care: Chest pain, rule out acute coronary event Paroxysmal Atrial fibrillation Pulmonary hypertension Hyperlipidemia History of pacemaker placement -Patient was admitted to observation unit with telemetry. -Troponins were trended all negative at less than 0.0123 draws. -TSH 1.070. -EKG completed revealing an atrial paced rhythm at 56 bpm with T-wave inversion in lead III, T-wave inversion in lead III is unchanged when compared to previous EKG completed 04/25/20 upon personal review/comparison and interpretation. -Chest x-ray completed in radiology report reviewed showing a left lower lung linear scarring and/or atelectasis otherwise negative for acute cardiopulmonary process. -Telemetry monitoring -Cardiology was consulted and appreciate recommendations. -Order placed for lipid profile, CBC, CMP, and magnesium -Continue cardiac medication regimen consisting of Eliquis, Flecainide, atorvastatin, and when necessary sublingual nitro. CODE STATUS: Full code DVT prophylaxis: Eliquis Discussed with: Pt and RN Anticipated discharge date: 23-[address]: Home Patient was seen independently by Nurse Pracitioner. This document was prepared using [employer] dictation software. Please allow for errors in planer feeder, while rare they do occur. I reviewed the documentation as provided by the ROSEMARY above, who is the original author of this note. I agree with the documented assessment and plan, with the following changes: none Objective - Vital Signs Vital signs: Vital Signs Temp 98.2 F 01/07/23 00:30 Pulse 69 01/07/23 04:00 Resp 16 01/07/23 04:00 BP 107/58 01/07/23 04:00 Pulse Ox 94 L 01/07/23 04:00 FiO2 Intake & Output 01/06/23 01/07/23 01/07/23 18:59 06:59 18:59 Intake Total 0 Balance 0 Weight 72.575 kg Intake: Oral 0 Other: Voiding Method Toilet Urinal
--- NOTE | 2023-01-07 15:41 | P.CRDCN ---
History of Present Illness Consult date: 01/07/23 Requesting physician: Johnny Joya Reason for Consult (text): chest pain Chief complaint: chest pain with breathing History of present illness: This is a pleasant 82-year-old gentleman who follows with Dr. Solomon in the office. Has a history of paroxysmal atrial fibrillation maintaining sinus mechanism on flecainide, anticoagulated, tachybradycardia syndrome with single- chamber pacemaker programmed to VVI 40, hyperlipidemia, and moderate tricuspid regurgitation felt to be secondary to the pacemaker wire. He underwent a Lexiscan Cardiolite stress test in August of this year that showed no evidence of ischemia. He presented initially to the emergency department on [address] [place] [address] and was transferred here for further evaluation and treatment. He presented with complaints of sudden onset of chest pain with inspiration that started after he mowed his lawn. He spent quite a few hours mowing his lawn on a riding lawnmower yesterday which she normally does. When he got off of his lawnmower he began to have significant discomfort with breathing which made him feel somewhat short of breath. He does not typically have any chest discomfort or shortness of breath. He denies any complaints of edema, orthopnea or PND. No palpitations, dizziness or lightheadedness. He's had no syncope. Troponins have been negative 3. Overall at the time of my examination he is feeling somewhat better. The pain in his chest is gone but he is feeling some discomfort in his throat with deep breathing. His vital signs have been stable. Past Medical History Past Medical History: Cancer Additional Past Medical History / Comment(s): Pacemaker. PROSTATE CA DIAGNOSED IN 2020. HAD COVID IN OCTOBER 2020. NO VACCINE. MELANOMA. History of Any Multi-Drug Resistant Organisms: None Reported Past Surgical History: Appendectomy, Hernia Repair, Pacemaker Additional Past Surgical History / Comment(s): BILATERAL CATARACTS, IMPLANT IN LEFT EYE. MELANOMA IN CHEST AREA. Past Anesthesia/Blood Transfusion Reactions: No Reported Reaction, Motion Sickness Type of Cardiac Device: Permanent Pacemaker Device Placement Date:: EST IN THE 1978. OCT 03, 2013. JUAN PABLO, [id number] (ON DEMAND). Past Psychological History: No Psychological Hx Reported Smoking Status: Never smoker Past Alcohol Use History: None Reported Past Drug Use History: None Reported - Past Family History Daughter(s) Family Medical History: Cancer Sister(s) Family Medical History: Cancer Mother Sister(s) Family Medical History: Cancer Additional Family Medical History / Comment(s): BREAST CANCER Medications and Allergies Home Medications Medication Instructions Recorded Confirmed Type Flecainide Acetate 50 mg PO BID 02/06/15 01/06/23 History Calcium Carbonate/Vitamin D3 1 cap PO BID 03/16/21 01/06/23 History [Calcium 600-Vit D3 12.5 Mcg (500 Iu)] Cholecalciferol [Vitamin D3 (25 50 mcg PO BID 03/16/21 01/06/23 History Mcg = 1000 Iu)] Fluticasone Nasal [place] [Flonase 2 spray NASAL HS 03/16/21 01/06/23 History Nasal [place]] Apixaban [Eliquis] 5 mg PO BID 01/06/23 01/06/23 History FLUoxetine HCL [PROzac] 10 mg PO DAILY 01/06/23 01/06/23 History Latanoprost [Latanoprost 0.005%] 1 drop LEFT EYE HS 01/06/23 01/06/23 History Rosuvastatin [Crestor] 20 mg PO DAILY 01/06/23 01/06/23 History Ubidecarenone [Coenzyme Q10] 200 mg PO DAILY 01/06/23 01/06/23 History timoloL maleate [timoloL maleate 1 applic LEFT EYE DAILY 01/06/23 01/06/23 History 0.25%] Allergies Allergy/AdvReac Type Severity Reaction Status Date / Time No Known Allergies Allergy Verified 01/06/23 21:02 Physical Exam Vitals: Vital Signs Temp Pulse Pulse Resp BP BP Pulse Ox 01/07/23 14:00 53 L 18 01/07/23 12:00 98 F 53 L 18 98/53 98 01/07/23 08:00 98.2 F 61 18 107/64 97 01/07/23 04:00 69 16 107/58 94 L 01/07/23 00:30 98.2 F 58 L 20 168/61 100 01/06/23 20:59 99.1 F 57 L 16 154/65 96 Intake and Output 01/07/23 01/07/23 01/07/23 06:59 14:59 22:59 Intake Total 0 Output Total 300 Balance 0 -300 Intake: Oral 0 Output: Urine 300 Other: Voiding Method Toilet Toilet Urinal Urinal Weight 72.575 kg PHYSICAL EXAMINATION: This is a 82-year-old male in no apparent distress at the time of my examination. HEENT: Head is atraumatic, normocephalic. Pupils are equal, round. Sclerae anicteric. Conjunctivae are clear. Mucous membranes of the mouth are moist. Neck is supple. There is no elevated jugular venous pressure. No carotid bruit is heard. CHEST EXAMINATION: Clear to auscultation bilaterally. No wheezes rales or rhonchi. Respirations even and nonlabored. HEART EXAMINATION: Heart regular, positive S1 and S2. No S3. No S4. With a soft systolic murmur. ABDOMEN: Soft, nontender. Bowel sounds are heard. No organomegaly noted. EXTREMITIES: 2+ peripheral pulses with no evidence of peripheral edema and no calf tenderness noted. NEUROLOGIC EXAMINATION: Patient is awake, alert and oriented x3. Results Cardiac Enzymes 01/06/23 01/06/23 01/07/23 Range/Units 21:13 23:20 02:30 Troponin I <0.012 <0.012 <0.012 (0.000-0.034) ng/mL Current Medications Generic Name Dose Route Start Last Admin Trade Name Freq PRN Reason Stop Dose Admin Apixaban 5 mg 01/07/23 09:00 01/07/23 09:29 Apixaban 5 Mg Tab PO 5 mg BID ELANA Administration Protocol Atorvastatin Calcium 40 mg 01/07/23 09:00 01/07/23 09:29 Atorvastatin 40 Mg Tab PO 40 mg DAILY ELANA Administration Flecainide Acetate 50 mg 01/07/23 09:00 01/07/23 09:30 Flecainide 50 Mg Tab PO 50 mg BID ELANA Administration Fluoxetine HCl 10 mg 01/07/23 09:00 01/07/23 10:13 Fluoxetine Hcl 10 Mg Cap PO 10 mg DAILY ELANA Administration Latanoprost 1 drops 01/07/23 21:00 Latanoprost 0.005% Ophth Drops 2.5 Ml Btl LEFT EYE HS ELANA Morphine Sulfate 4 mg 01/07/23 00:57 Morphine Sulfate 4 Mg/Ml Syringe IVP Q4HR PRN Pain Nitroglycerin 0.4 mg 01/06/23 23:01 01/07/23 00:47 Nitroglycerin Sl Tabs 0.4 Mg Tab SUBLINGUAL 0.4 mg Q5M PRN Administration Chest Pain Timolol Maleate 1 drops 01/07/23 09:00 01/07/23 10:13 Timolol 0.25% Ophth Drops 5 Ml Btl LEFT EYE 1 drops DAILY ELANA Administration Intake and Output 01/07/23 01/07/23 01/07/23 06:59 14:59 22:59 Intake Total 0 Output Total 300 Balance 0 -300 Intake: Oral 0 Output: Urine 300 Other: Voiding Method Toilet Toilet Urinal Urinal Weight 72.575 kg EKG Interpretations (text) Sinus bradycardia Assessment and Plan Assessment: #1 symptoms of chest pain with deep inspiration, acute coronary event has been ruled out, patient had a normal stress test in August of this year. #2 paroxysmal atrial fibrillation maintaining sinus mechanism #3 tachybradycardia syndrome status post single-chamber pacemaker #4 tricuspid regurgitation Plan: From cardiology's perspective we suggest increasing patient's activity, ambulate the patient in the hallway. Depending on his symptoms patient may be discharged home later today in follow up in the office with Dr. Solomon as an outpatient. RN EMERGENCY ROOM note has been reviewed, I agree with a documented findings and plan of care. Patient was seen and examined.
--- NOTE | 2023-01-07 18:23 | CA ---
Transthoracic Echo Report Name: Charanjit Alonzo Age: 82 Gender: M : 1940 Exam Date: 01/07/2023 12:54 Exam Location: [facility] Ht (in): 68 Wt (lb): 160 Ordering Physician: Johnny Joya MD Attending/Referring Phys: [id number], [employer] Lexii Weldon RDCS Procedure CPT: Indications: chest pain, ? h/o afib Cardiac Hx: Technical Quality: Good Contrast 1: Total Dose (mL): Contrast 2: Total Dose (mL): MEASUREMENTS (Male / Female) Normal Values 2D ECHO LV Diastolic Diameter PLAX 4.3 cm 4.2 - 5.9 / 3.9 - 5.3 cm LV Systolic Diameter PLAX 3.0 cm IVS Diastolic Thickness 1.1 cm 0.6 - 1.0 / 0.6 - 0.9 cm LVPW Diastolic Thickness 1.2 cm 0.6 - 1.0 / 0.6 - 0.9 cm LV Relative Wall Thickness 0.5 RV Internal Dim ED PLAX 3.4 cm LA Systolic Diameter LX 3.9 cm 3.0 - 4.0 / 2.7 - 3.8 cm LV Diastolic Volume MOD BP 49.2 cm??? 67 - 155 / 56 - 104 cm??? LV Systolic Volume MOD BP 23.8 cm??? 22 - 58 / 19 - 49 cm??? LV Ejection Fraction MOD BP 51.7 % >= 55 % LV Diastolic Volume MOD 4C 49.7 cm??? LV Systolic Volume MOD 4C 24.5 cm??? LV Ejection Fraction MOD 4C 50.7 % LV Diastolic Length 4C 7.0 cm LV Systolic Length 4C 6.0 cm LV Diastolic Volume MOD 2C 52.5 cm??? LV Systolic Volume MOD 2C 23.6 cm??? LV Ejection Fraction MOD 2C 55.0 % LV Diastolic Length 2C 6.9 cm LV Systolic Length 2C 6.0 cm LA Volume 78.8 cm??? 18 - 58 / 22 - 52 cm??? M-MODE Aortic Root Diameter MM 3.1 cm MV E Point Septal Separation 0.5 cm AV Cusp Separation MM 2.3 cm DOPPLER AV Peak Velocity 122.9 cm/s AV Peak Gradient 6.0 mmHg MV Area PHT 3.8 cm??? Mitral E Point Velocity 87.0 cm/s Mitral A Point Velocity 47.1 cm/s Mitral E to A Ratio 1.8 MV Deceleration Time 201.9 ms TR Peak Velocity 254.3 cm/s TR Peak Gradient 25.9 mmHg Right Ventricular Systolic Press 30.5 mmHg FINDINGS Left Ventricle Left ventricular ejection fraction is estimated at 50-55 %. Left ventricular cavity size normal. Mildly increased septal wall thickness. Left ventricular systolic function borderline normal Right Ventricle Mild right ventricular dilatation. Right ventricular systolic pressure within normal limits. A wire is noted in the right ventricle Right Atrium Normal right atrial size. Left Atrium Moderately increased left atrial volume. Mildly increased left atrial area. Mitral Valve Structurally normal mitral valve. Mild mitral regurgitation. Aortic Valve Trileaflet aortic valve. No aortic valve stenosis or regurgitation. Tricuspid Valve Structurally normal tricuspid valve. Moderate tricuspid regurgitation. Pulmonic Valve Structurally normal pulmonic valve. Trace to mild pulmonic regurgitation. Pericardium Normal pericardium. No pericardial effusion. Aorta Normal size aortic root and proximal ascending aorta. CONCLUSIONS 1. The ventricle systolic function borderline normal 2. Mild mitral was moderate tricuspid regurgitation 3. A wire is noted in the right ventricle Previewed by: Dr. Sho Moscoso MD (Electronically Signed) Final Date: 07 January 2023 18:22
[2023-01-07] MEDS ORDERED: LATANOPROST 0.005% OPHTH DROPS 2.5 ML BTL LEFT EYE SCH (21:00)
[2023-01-07] MEDS ORDERED: FAMOTIDINE 20 MG TAB PO STA (21:48)
[2023-01-08 00:23] VITALS: RESP 17
[2023-01-08 06:08] LABS: HCT 43.2 % (39.0-53.0); HGB 14.2 gm/dL (13.0-17.5); MCH 30.5 pg (25.0-35.0); MCHC 32.9 g/dL (31.0-37.0); MCV 92.8 fL (80.0-100.0); Platelet Count 165 k/uL (150-450); RBC 4.65 m/uL (4.30-5.90); RDW 13.3 % (11.5-15.5); WBC 10.7 k/uL (3.8-10.6)
[2023-01-08 06:09] LABS: Albumin 3.3 g/dL (3.5-5.0); Calcium 8.6 mg/dL (8.4-10.2); Magnesium 1.9 mg/dL (1.6-2.3); Potassium 3.9 mmol/L (3.5-5.1); Total Bilirubin 2.2 mg/dL (0.2-1.3); Total Protein 5.9 g/dL (6.3-8.2)
[2023-01-08 08:36] VITALS: BP 146/72; PULSE 57; TEMP 97.6
[2023-01-08] MEDS ORDERED: FLECAINIDE 50 MG TAB PO STA (09:07)
[2023-01-08] MEDS ORDERED: IBUPROFEN 400 MG TAB PO SCH (09:15)
[2023-01-08] MEDS: APIXABAN 5 MG TAB PO SCH (09:18)
[2023-01-08] MEDS: ATORVASTATIN 40 MG TAB PO SCH (09:18)
[2023-01-08] MEDS: FLUoxetine HCL 10 MG CAP PO SCH (09:18)
[2023-01-08] MEDS: FLECAINIDE 50 MG TAB PO SCH (09:19)
[2023-01-08] MEDS: TIMOLOL 0.25% OPHTH DROPS 5 ML BTL LEFT EYE SCH (09:19)
[2023-01-08 09:24] LABS: Chol/HDL Ratio 2.42 Ratio; LDL Cholesterol,Calculated 53.8 mg/dL; VLDL Calculation 15.44 mg/dL
--- NOTE | 2023-01-08 13:02 | P.PN ---
Subjective Progress Note Date: 01/08/23 This is a pleasant 82-year-old gentleman who follows with Dr. Solomon in the office. Has a history of paroxysmal atrial fibrillation maintaining sinus mechanism on flecainide, anticoagulated, tachybradycardia syndrome with single- chamber pacemaker programmed to VVI 40, hyperlipidemia, and moderate tricuspid regurgitation felt to be secondary to the pacemaker wire. He underwent a Lexiscan Cardiolite stress test in August of this year that showed no evidence of ischemia. He presented initially to the emergency department on [address] [place] [address] and was transferred here for further evaluation and treatment. He presented with complaints of sudden onset of chest pain with inspiration that started after he mowed his lawn. He spent quite a few hours mowing his lawn on a riding lawnmower yesterday which she normally does. When he got off of his lawnmower he began to have significant discomfort with breathing which made him feel somewhat short of breath. He does not typically have any chest discomfort or shortness of breath. He denies any complaints of edema, orthopnea or PND. No palpitations, dizziness or lightheadedness. He's had no syncope. Troponins have been negative 3. Overall at the time of my examination he is feeling somewhat better. The pain in his chest is gone but he is feeling some discomfort in his throat with deep breathing. His vital signs have been stable. 01/08/2023 The patient was seen and examined while up ambulating in his room. He is overall feeling a bit better today. Continues to have some neck pain. Primary has ordered heat pack and short term NSAIDs. He had episode of A. fib with RVR this morning and received an extra dose of flecainide 50 mg by mouth with conversion to sinus mechanism. Objective - Vital Signs Vital signs: Vital Signs Temp 97.6 F 01/08/23 07:22 Pulse 57 L 01/08/23 07:22 Resp 17 01/08/23 07:22 BP 146/72 01/08/23 07:22 Pulse Ox 94 L 01/08/23 08:26 FiO2 21 01/08/23 08:26 Intake & Output 01/07/23 01/08/23 01/08/23 18:59 06:59 18:59 Intake Total 180 118 Output Total 300 Balance -120 118 Intake: Oral 180 118 Output: Urine 300 Other: Voiding Method Toilet Toilet Urinal Urinal # Voids 1 1 - Exam PHYSICAL EXAMINATION: This is a 82-year-old male in no apparent distress at the time of my examination. HEENT: Head is atraumatic, normocephalic. Pupils are equal, round. Sclerae anicteric. Conjunctivae are clear. Mucous membranes of the mouth are moist. Neck is supple. There is no elevated jugular venous pressure. No carotid bruit is heard. CHEST EXAMINATION: Clear to auscultation bilaterally. No wheezes rales or rhonchi. Respirations even and nonlabored. HEART EXAMINATION: Heart regular, positive S1 and S2. No S3. No S4. With a soft systolic murmur. ABDOMEN: Soft, nontender. Bowel sounds are heard. No organomegaly noted. EXTREMITIES: 2+ peripheral pulses with no evidence of peripheral edema and no calf tenderness noted. NEUROLOGIC EXAMINATION: Patient is awake, alert and oriented x3. - Labs CBC & Chem 7: 01/08/23 05:30 01/08/23 05:30 Labs: Abnormal Lab Results - Last 24 Hours (Table) 01/08/23 01/08/23 Range/Units 05:30 05:30 WBC 10.7 H (3.8-10.6) k/uL Sodium 135 L (137-145) mmol/L Total Bilirubin 2.2 H (0.2-1.3) mg/dL Total Protein 5.9 L (6.3-8.2) g/dL Albumin 3.3 L (3.5-5.0) g/dL Assessment and Plan Assessment: #1 symptoms of chest pain with deep inspiration, acute coronary event has been ruled out, patient had a normal stress test in August of this year. #2 paroxysmal atrial fibrillation maintaining sinus mechanism #3 tachybradycardia syndrome status post single-chamber pacemaker #4 tricuspid regurgitation Plan: From cardiology's perspective may be discharged home today and follow up in the office with Dr. Solomon as an outpatient. NURSE SITTER note has been reviewed, I agree with a documented findings and plan of care. Patient was seen and examined.
--- NOTE | 2023-01-08 13:07 | P.DS ---
Providers Date of admission: 01/06/23 23:01 Expected date of discharge: 01/08/23 Attending physician: Johnny Joya MD Consults: 01/06/23 23:01 Consult Physician Routine Consulting Provider: Pradeep Burciaga Consult Reason/Comments: chest pain Do you want consulting provider notified?: Yes Primary care physician: Ananth Hansen Hospital Course: Discharge Diagnosis: Chest pain, acute coronary syndrome ruled out and likely costochondritis Atrial fibrillation with rapid ventricular response, paroxysmal Pulmonary hypertension Dyslipidemia Hospital Course: Gen. an 82-year-old male with history of atrial fibrillation anticoagulated with Eliquis, permanent pacemaker, prostate cancer, and melanoma who presented to the hospital with complaints of chest pain that occurred when he was cutting the grass which were worse with deep inspiration. Initial laboratory analysis in the ER was unremarkable and troponin was negative. EKG demonstrated T-wave inversion in leads 3 and chest x-ray showed left lower lobe atelectasis with an old eighth rib fracture. He was placed in observation for chest pain. He was seen by cardiology and an echocardiogram was completed which showed a preserved ejection fraction at 50-55% with mildly increased septal wall thickness. He continued to do well. He was up and ambulating without chest pain. He did go back into A. fib with RVR in the morning of 01/08 and he received 100 mg of flecanide which resulted in conversion to normal sinus rhythm. He was cleared by cardiology and determined stable for discharge home. He was felt to have costochondiritis and was recommended Mortin 400 mg TID for 3 days and follow-up with Dr. Shah and Dr. Solomon Patient seen and examined at bedside. He denies any chest pain when up and walking. He is complaining of some left neck pain that is worse with rotating his head. He also continues to have some pain with deep breathing. This is reproducible to palpation of his chest. We discussed that he likely has costochondritis or a pulled muscle related to recent outdoor work and I suggested a trial of Motrin and falling off his primary care physician for other etiologies. Patient is agreeable with plan of care. Wells score- 1, HR >100, low risk PE Vital signs reviewed and stable. General: nontoxic, no distress, appears at stated age Cardiovascular: S1S2 irreg, no murmur, positive posterior tibial pulse bilateral, Lungs: CTA bilateral, no rhonchi, no rales , no accessory muscle use Abdominal: soft, nontender to palpation, no guarding, no appreciable organomegaly Ext: no gross muscle atrophy, no edema b/l lower extremities, no contractures Neuro: CN II-XI grossly intact, no focal neuro deficits Psych: Alert, oriented, appropriate affect A total of 27 minutes of time were spent preparing this complex discharge summary. Patient was discharged on 01/08/23. This dictation was prepared using [employer] voice recognition software. Though every attempt is made to correct errors during during dictation some may still exist. Patient Condition at Discharge: Fair Plan - Discharge Summary New Discharge Prescriptions: New Ibuprofen [Motrin] 400 mg PO Q8HR #9 tab Continue Flecainide Acetate 50 mg PO BID Fluticasone Nasal [place] [Flonase Nasal [place]] 2 spray NASAL HS Latanoprost [Latanoprost 0.005%] 1 drop LEFT EYE HS Ubidecarenone [Coenzyme Q10] 200 mg PO DAILY Cholecalciferol [Vitamin D3 (25 Mcg = 1000 Iu)] 50 mcg PO BID Calcium Carbonate/Vitamin D3 [Calcium 600-Vit D3 12.5 Mcg (500 Iu)] 1 cap PO BID FLUoxetine HCL [PROzac] 10 mg PO DAILY timoloL maleate [timoloL maleate 0.25%] 1 applic LEFT EYE DAILY Rosuvastatin [Crestor] 20 mg PO DAILY Apixaban [Eliquis] 5 mg PO BID Discharge Medication List Flecainide Acetate 50 mg PO BID 02/06/15 [History] Calcium Carbonate/Vitamin D3 [Calcium 600-Vit D3 12.5 Mcg (500 Iu)] 1 cap PO BID 03/16/21 [History] Cholecalciferol [Vitamin D3 (25 Mcg = 1000 Iu)] 50 mcg PO BID 03/16/21 [History] Fluticasone Nasal [place] [Flonase Nasal [place]] 2 spray NASAL HS 03/16/21 [History] Apixaban [Eliquis] 5 mg PO BID 01/06/23 [History] FLUoxetine HCL [PROzac] 10 mg PO DAILY 01/06/23 [History] Latanoprost [Latanoprost 0.005%] 1 drop LEFT EYE HS 01/06/23 [History] Rosuvastatin [Crestor] 20 mg PO DAILY 01/06/23 [History] Ubidecarenone [Coenzyme Q10] 200 mg PO DAILY 01/06/23 [History] timoloL maleate [timoloL maleate 0.25%] 1 applic LEFT EYE DAILY 01/06/23 [History] Ibuprofen [Motrin] 400 mg PO Q8HR #9 tab 01/08/23 [Rx] Follow up Appointment(s)/Referral(s): Darius Solomon MD [STAFF PHYSICIAN] - 1 Week Ananth Hansen MD [Primary Care Provider] - 1-2 days Activity/Diet/Wound Care/Special Instructions: Activity: As tolerated Diet: [] Wound Care: [] Special Instructions: Discharge Disposition: HOME SELF-CARE
== END 2023-01-08 13:53 | disposition home or self-care (01) ==
LOC: EC 20:56 → 3SCARD 23:01 → 6NMEDSUR 01-08 01:53
PROVIDERS: ADMIT Internal Medicine; ATTEND Internal Medicine
DX: R07.9 Chest pain, unspecified (principal); I48.0 Paroxysmal atrial fibrillation; I27.20 Pulmonary hypertension, unspecified; J98.11 Atelectasis; E78.5 Hyperlipidemia, unspecified; I49.5 Sick sinus syndrome; H40.9 Unspecified glaucoma; Z95.0 Presence of cardiac pacemaker; I07.1 Rheumatic tricuspid insufficiency; Z85.46 Personal history of malignant neoplasm of prostate; Z85.820 Personal history of malignant melanoma of skin; Z86.16 Personal history of COVID-19; Z90.49 Acquired absence of other specified parts of digestive tract; Z98.42 Cataract extraction status, left eye; Z96.1 Presence of intraocular lens; Z98.890 Other specified postprocedural states; Z80.3 Family history of malignant neoplasm of breast; Z79.01 Long term (current) use of anticoagulants; Z79.899 Other long term (current) drug therapy
CPT/HCPCS: 96374; 99285; 36415; 94760 ×2; 93005 ×2; 93306; 80061; 80053; 84443; 83735; 84484 ×2; 85027; 71046; G0378 ×4; J2270

== ENCOUNTER 2024-08-15 13:05 | Day surgery (SDC) | payer MEDICARE ==
[2024-08-15] MEDS: SODIUM CHLORIDE 0.9% 1,000 ML IV SCH (13:33)
[2024-08-15] MEDS: IV FLUID CONTINUATION 1,000 ML IV ONE (13:34)
[2024-08-15 13:41] VITALS: BP 184/86; PULSE 49; RESP 16; TEMP 97.2
[2024-08-15] MEDS ORDERED: SODIUM CHLORIDE 0.9% 1,000 ML IV SCH (13:45)
[2024-08-15] MEDS: IOPAMIDOL-250 100ML BTL IVP ONE (15:06)
[2024-08-15] MEDS: LIDOCAINE 1% INJ 10MG/ML (20 ML MDV) SQ ONE (15:25)
--- NOTE | 2024-08-29 10:16 | P.EPPROC ---
- EP Procedure Note Electrophysiology Procedure Note: Left upper extremity venogram 15 cc IV dye injected. Patent left subclavian and axillary venous system up to the SVC Right upper extremity venogram Patent right subclavian vein axillary vein and SVC Lead noted in the right subclavian vein Loop monitor implant Primary physicians: Cable Former: Dr. Solomon Indication: History of tachybradycardia syndrome. Single-chamber pacemaker from the right side has complete noncapture, watching for any tacky bradycardia episodes Patient was brought to the EP lab in a fasting state. Written informed consent was obtained prior to the procedure. The left pectoral area was prepped and draped per protocol. Intravenous antibiotic was administered preoperatively. A subcutaneous Loop monitor was implanted successfully and the wound was closed per protocol. The device was programmed to detect significant barry- arrhythmic and tachy-arrhythmic events, per protocol. Device and programming details: Tachycardia as well as bradycardia parameters programmed
== END 2024-08-15 16:08 | disposition home or self-care (01) ==
LOC: CATHEP 13:05
PROVIDERS: ATTEND Internal Medicine Clinical Cardiac Electrophysiology
DX: T82.190A Other mechanical complication of cardiac electrode, initial encounter (principal); I49.5 Sick sinus syndrome; I48.0 Paroxysmal atrial fibrillation; I48.92 Unspecified atrial flutter; E78.5 Hyperlipidemia, unspecified; Z79.01 Long term (current) use of anticoagulants; Z79.899 Other long term (current) drug therapy; Z82.49 Family history of ischemic heart disease and other diseases of the circulatory system
CPT/HCPCS: 36005; 75820; 33285; C1764; J0690; J2003; Q9966